=== PATIENT | female | born 1960 | race Caucasian/White ===

== ENCOUNTER → 2017-08-30 | Outpatient (REF) ==
[2017-08-30 10:51] LABS: HEMATOCRIT 40.6 % (36.0-47.0); HEMOGLOBIN 13.5 g/dl (12.0-15.5); MEAN CORPUSCULAR HGB CONC 33.3 g/dl (32.0-36.5); MEAN CORPUSCULAR VOLUME 90.2 fl (80.0-96.0); PLATELET COUNT, AUTOMATED 244 10^3/uL (150-450); RED CELL DISTRIBUTION WIDTH 13.2 % (11.5-14.5); WHITE BLOOD COUNT 5.5 10^3/uL (4.0-10.0)
[2017-08-30 10:55] LABS: APPEARANCE, URINE HAZY (CLEAR); BACTERIA, URINE AUTO NEGATIVE (NEGATIVE); BILIRUBIN, URINE AUTO NEGATIVE (NEGATIVE); BLOOD, URINE BLOOD NEGATIVE (NEGATIVE); COLOR, URINE YELLOW (YELLOW); GLUCOSE, URINE (UA) AUTO NEGATIVE (NEGATIVE); KETONE, URINE AUTO NEGATIVE (NEGATIVE); LEUKOCYTE ESTERASE, URINE AUTO TRACE (NEGATIVE); MUCUS, URINE SMALL (NEGATIVE); NITRITE, URINE AUTO NEGATIVE (NEGATIVE); PROTEIN, URINE AUTO NEGATIVE (NEGATIVE); RBC, URINE AUTO 3 /HPF (0-3); SQUAMOUS EPITHELIAL CELL UR AU 2 /HPF (0-6); UROBILINOGEN, URINE AUTO 0.2 mg/dL (0.0-2.0); WBC, URINE AUTO 2 /HPF (0-3)
[2017-08-30 11:23] LABS: ANION GAP 5 MEQ/L (8-16); BLOOD UREA NITROGEN 12 MG/DL (7-18); CALCIUM LEVEL 9.1 MG/DL (8.5-10.1); CARBON DIOXIDE LEVEL 27 MEQ/L (21-32); CHLORIDE LEVEL 109 MEQ/L (98-107); CHOLESTEROL LEVEL 208 MG/DL (<200); CREATININE FOR GFR 0.65 MG/DL (0.55-1.30); GLOMERULAR FILTRATION RATE > 60.0 (>51); GLUCOSE, FASTING 95 MG/DL (70-100); HDL CHOLESTEROL 52 MG/DL (>40); LDL CHOLESTEROL 126.6 MG/DL (<100); NON-HDL-C 156 MG/DL; POTASSIUM SERUM 3.9 MEQ/L (3.5-5.1); SODIUM LEVEL 141 MEQ/L (136-145); TRIGLYCERIDES LEVEL 147 MG/DL (<150)
== END ==
LOC: M LAB 10:11
DX: Z00.00 Encounter for general adult medical examination without abnormal findings (principal)

== ENCOUNTER → 2018-01-09 | Outpatient (REF) | payer OTHER | LOC: M RAD 08:55 | DX: Z12.31 Encounter for screening mammogram for malignant neoplasm of breast (principal) ==

== ENCOUNTER → 2019-02-27 | Outpatient (REF) | payer OTHER ==
--- NOTE | 2019-02-27 12:13 | REPMRS ---
Patient History The patient states she had a clinical breast exam in 2018. Family history of unknown cancer at age 50 in father. Digital Mammo Screening Bilat: February 27, 2019 - Exam #: [id number] Bilateral CC and MLO view(s) were taken. Technologist: Astrid Ro, Technologist Prior study comparison: January 09, 2018, bilateral digital mammo screening bilat performed at [facility]. May 12, 2016, bilateral digital mammo screening bilat performed at [facility]. May 11, 2015, bilateral digital mammo screening bilat performed at [facility]. FINDINGS: There are scattered fibroglandular densities. There has been no change in the appearance of the mammogram from the prior studies. There is a mild amount of scattered fibroglandular density which is fairly symmetric. There is no interval development of dominant mass, architectural distortion, or grouped microcalcification suggestive of malignancy. 3-D tomosynthesis shows no additional findings. Assessment: BI-RADS/ACR category 1 mammogram. Negative Mammogram. Recommendation Routine screening mammogram of both breasts in 1 year (for women over age 40). This patient's Lifetime Breast Cancer Risk is estimated at 9.2 %. This mammogram was interpreted with the aid of an FDA-approved computer-aided dectection system. Electronically Signed By: Lawson aBrron MD 02/27/19 [id number]
== END ==
LOC: M RAD 08:06 → EDSTATUS 08:30
PROVIDERS: ATTEND Nurse Practitioner Women's Health
DX: Z12.31 Encounter for screening mammogram for malignant neoplasm of breast (principal)

== ENCOUNTER → 2019-06-04 | Outpatient (REF) ==
[2019-06-04 09:13] LABS: HEMATOCRIT 38.1 % (36.0-47.0); HEMOGLOBIN 12.7 g/dl (12.0-15.5); MEAN CORPUSCULAR HEMOGLOBIN 31.4 pg (27.0-33.0); MEAN CORPUSCULAR HGB CONC 33.3 g/dl (32.0-36.5); MEAN CORPUSCULAR VOLUME 94.1 fl (80.0-96.0); PLATELET COUNT, AUTOMATED 191 10^3/uL (150-450); RED BLOOD COUNT 4.05 10^6/uL (4.00-5.40); WHITE BLOOD COUNT 5.6 10^3/uL (4.0-10.0)
[2019-06-04 09:21] LABS: APPEARANCE, URINE CLEAR (CLEAR); BACTERIA, URINE AUTO NEGATIVE (NEGATIVE); BILIRUBIN, URINE AUTO NEGATIVE (NEGATIVE); BLOOD, URINE BLOOD NEGATIVE (NEGATIVE); COLOR, URINE YELLOW (YELLOW); GLUCOSE, URINE (UA) AUTO NEGATIVE (NEGATIVE); KETONE, URINE AUTO NEGATIVE (NEGATIVE); LEUKOCYTE ESTERASE, URINE AUTO NEGATIVE (NEGATIVE); NITRITE, URINE AUTO NEGATIVE (NEGATIVE); PROTEIN, URINE AUTO NEGATIVE (NEGATIVE); RBC, URINE AUTO 1 /HPF (0-3); SPECIFIC GRAVITY URINE AUTO 1.012 (1.002-1.035); SQUAMOUS EPITHELIAL CELL UR AU 0 /HPF (0-6); UROBILINOGEN, URINE AUTO 0.2 mg/dL (0.0-2.0); WBC, URINE AUTO 0 /HPF (0-3)
[2019-06-04 09:40] LABS: BLOOD UREA NITROGEN 10 MG/DL (7-18); CALCIUM LEVEL 9.2 MG/DL (8.5-10.1); CARBON DIOXIDE LEVEL 30 MEQ/L (21-32); CHLORIDE LEVEL 108 MEQ/L (98-107); CHOLESTEROL LEVEL 227 MG/DL (<200); CHOLESTEROL RISK RATIO 3.546 (<5); CREATININE FOR GFR 0.59 MG/DL (0.55-1.30); GLOMERULAR FILTRATION RATE > 60.0 (>51); GLUCOSE, FASTING 95 MG/DL (70-100); HDL CHOLESTEROL 64 MG/DL (>40); LDL CHOLESTEROL 141 MG/DL (<100); NON-HDL-C 163 MG/DL; SODIUM LEVEL 143 MEQ/L (136-145); TRIGLYCERIDES LEVEL 112 MG/DL (<150)
--- NOTE | 2019-06-05 01:32 | REP ---
Clinical: Annual employee physical . Comparison: 08/30/2017 . Technique: PA and lateral. Findings: The mediastinum and cardiac silhouette are normal. The lung noble are clear and without acute consolidation, effusion, or pneumothorax. The skeletal structures are intact and normal. Impression: 1. No acute cardiopulmonary process. Electronically Signed by Vinicio Alexander MD 06/05/2019 01:23 A
--- NOTE | 2019-06-05 07:34 | ECGEPIP ---
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
== END ==
LOC: M LAB 07:31
PROVIDERS: ATTEND Nurse Practitioner Adult Health
DX: Z02.1 Encounter for pre-employment examination (principal)

== ENCOUNTER → 2020-03-14 | Outpatient (CLI) | payer OTHER | LOC: M LABSMTC 08:19 | PROVIDERS: ATTEND Pediatrics | DX: Z20.828 Contact with and (suspected) exposure to other viral communicable diseases (principal) | CPT/HCPCS: C9803; U0003 ==

== ENCOUNTER → 2020-07-12 | Outpatient (REF) ==
--- NOTE | 2020-07-12 10:01 | REP ---
INDICATION: ANNUAL CONTRACT HE[employer] SCREENING, LAB 1ST EKG 2ND THEN XR COMPARISON: 06/04/2019 TECHNIQUE: PA and lateral. FINDINGS: The mediastinum and cardiac silhouette are normal. The lung noble are clear and without acute consolidation, effusion, or pneumothorax. The skeletal structures are intact and normal. IMPRESSION: No acute cardiopulmonary process. <Electronically signed by Vinicio Alexander > 07/12/20 [id number]
[2020-07-12 11:19] LABS: HEMATOCRIT 41.1 % (36.0-47.0); HEMOGLOBIN 12.8 g/dl (12.0-15.5); MEAN CORPUSCULAR HEMOGLOBIN 30.1 pg (27.0-33.0); MEAN CORPUSCULAR HGB CONC 31.1 g/dl (32.0-36.5); MEAN CORPUSCULAR VOLUME 96.7 fl (80.0-96.0); PLATELET COUNT, AUTOMATED 201 10^3/uL (150-450); RED BLOOD COUNT 4.25 10^6/uL (4.00-5.40); WHITE BLOOD COUNT 3.7 10^3/uL (4.0-10.0)
[2020-07-12 12:20] LABS: BLOOD UREA NITROGEN 12 MG/DL (7-18); CALCIUM LEVEL 8.9 MG/DL (8.5-10.1); CARBON DIOXIDE LEVEL 28 MEQ/L (21-32); CHLORIDE LEVEL 109 MEQ/L (98-107); CHOLESTEROL LEVEL 241 MG/DL (<200); CHOLESTEROL RISK RATIO 3.171 (<5); GLOMERULAR FILTRATION RATE > 60.0 (>51); GLUCOSE, FASTING 93 MG/DL (70-100); HDL CHOLESTEROL 76 MG/DL (>40); LDL CHOLESTEROL 152 MG/DL (<100); NON-HDL-C 165 MG/DL; POTASSIUM SERUM 4.4 MEQ/L (3.5-5.1); SODIUM LEVEL 141 MEQ/L (136-145); TRIGLYCERIDES LEVEL 67 MG/DL (<150)
--- NOTE | 2020-07-12 19:23 | ECGEPIP ---
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
== END ==
LOC: M LAB 09:21
PROVIDERS: ATTEND Internal Medicine
DX: Z02.89 Encounter for other administrative examinations (principal)

== ENCOUNTER → 2021-03-24 | Outpatient (CLI) | payer OTHER ==
--- NOTE | 2021-03-24 10:50 | REPMRS ---
Patient History The patient states she had a clinical breast exam on 03-24-2021. Patient is postmenopausal. Family history of endometrial cancer at age 55 in maternal aunt, prostate cancer at age 45 in paternal cousin. Benign lumpectomy of the left breast, May 14, 1989. Reductions of both breasts, May 14, 1987. Took estrogen for 3 months. Tomosynthesis is performed. [place] breast density is a. [facility] lifetime risk of breast cancer 9.4%. Patient states no breast complaints today. Patient has signed MRS History Sheet. Digital Woman Screen Mammo: March 24, 2021 - Exam #: [id number] Bilateral CC and MLO view(s) were taken. Technologist: Roxana Mccollum Orange Grower Prior study comparison: February 27, 2019, bilateral digital mammo screening bilat, performed at [facility]. January 09, 2018, bilateral digital mammo screening bilat, performed at [facility]. FINDINGS: There are scattered fibroglandular densities. There has been no change in the appearance of the mammogram from the prior studies. There is a mild amount of residual fibroglandular tissue which is fairly symmetric. There is no interval development of dominant mass, architectural distortion, or clustered microcalcification suggestive of malignancy. Assessment: BI-RADS/ACR category 1 mammogram. Negative Mammogram. Recommendation Routine screening mammogram in 1 year (for women over age 40). This mammogram was interpreted with the aid of an FDA-approved computer-aided dectection system. Electronically Signed By: Familia Reyna MD 03/24/21 [id number]
== END ==
LOC: M WHC 08:23
PROVIDERS: ATTEND Advanced Practice Midwife
DX: Z12.31 Encounter for screening mammogram for malignant neoplasm of breast (principal); Z80.42 Family history of malignant neoplasm of prostate; Z80.49 Family history of malignant neoplasm of other genital organs

== ENCOUNTER → 2021-03-24 | Outpatient (REF) | payer OTHER | LOC: M SFHCWAGY 13:25 | PROVIDERS: ATTEND Advanced Practice Midwife | DX: Z12.4 Encounter for screening for malignant neoplasm of cervix (principal) ==

== ENCOUNTER → 2021-04-28 | Outpatient (REF) ==
[2021-04-28 12:13] LABS: RSV AMPLIFICATION NEGATIVE (NEGATIVE)
== END ==
LOC: M EMP 11:16
PROVIDERS: ATTEND Family Medicine
DX: Z11.52 Encounter for screening for COVID-19 (principal); Z20.822 Contact with and (suspected) exposure to COVID-19

== ENCOUNTER → 2021-11-15 | Outpatient (CLI) | payer OTHER ==
[2021-11-15 14:13] LABS: BLOOD UREA NITROGEN 13 MG/DL (7-18); CALCIUM LEVEL 9.5 MG/DL (8.5-10.1); CARBON DIOXIDE LEVEL 33 MEQ/L (21-32); CHLORIDE LEVEL 102 MEQ/L (98-107); CREATININE FOR GFR 0.64 MG/DL (0.55-1.30); GLOMERULAR FILTRATION RATE > 60.0 (>51); GLUCOSE, FASTING 74 MG/DL (70-100); MAGNESIUM LEVEL 1.9 MG/DL (1.8-2.4); POTASSIUM SERUM 3.7 MEQ/L (3.5-5.1); SODIUM LEVEL 139 MEQ/L (136-145)
== END ==
LOC: M LAB 12:55
PROVIDERS: ATTEND Internal Medicine
DX: R73.09 Other abnormal glucose (principal); I10 Essential (primary) hypertension

== ENCOUNTER → 2022-03-12 | Outpatient (REF) | LOC: M LABSMTC 11:07 | PROVIDERS: ATTEND Family Medicine | DX: Z20.822 Contact with and (suspected) exposure to COVID-19 (principal) ==

== ENCOUNTER → 2022-03-27 | Outpatient (REF) | payer OTHER, SELFPAY | LOC: M WHC 08:00 → EDSTATUS 09:30 | PROVIDERS: ATTEND Internal Medicine | DX: Z12.31 Encounter for screening mammogram for malignant neoplasm of breast (principal) ==

== ENCOUNTER → 2022-03-27 | Outpatient (REF) | LOC: M WHC 09:21 → M WBI 09:21 | PROVIDERS: ATTEND Internal Medicine | DX: Z12.31 Encounter for screening mammogram for malignant neoplasm of breast (principal); Z53.8 Procedure and treatment not carried out for other reasons ==

== ENCOUNTER → 2023-07-25 | Outpatient (CLI) | payer OTHER | LOC: M WHC 13:00 | PROVIDERS: ATTEND Internal Medicine | DX: Z12.31 Encounter for screening mammogram for malignant neoplasm of breast (principal); R92.323 Mammographic fibroglandular density, bilateral breasts ==

== ENCOUNTER → 2024-08-14 | Outpatient (CLI) | payer OTHER | LOC: M WHC 08:32 | PROVIDERS: ATTEND Internal Medicine | DX: Z12.31 Encounter for screening mammogram for malignant neoplasm of breast (principal); R92.323 Mammographic fibroglandular density, bilateral breasts ==

== ENCOUNTER → 2025-03-16 | Outpatient (CLI) | payer OTHER | LOC: M WUC 11:47 | PROVIDERS: ATTEND Nurse Practitioner Family | DX: M25.561 Pain in right knee (principal); M17.11 Unilateral primary osteoarthritis, right knee ==